=== PATIENT | male | born 1995 | race Hispanic/Latino ===

== ENCOUNTER 2022-02-07 06:48 | Emergency (ER) | payer SELFPAY ==
[2022-02-07 07:26] LABS: #Monocytes 0.3 10x3/uL (0.0-1.1); #Neutrophils 5.3 10x3/uL (1.5-8.4); %Basophils 0.6 % (0.0-2.0); %Eosinophils 0.3 % (0.0-6.0); %Lymphocytes 13.3 % (18.0-47.0); %Monocytes 4.6 % (0.0-10.0); %Neutrophils 79.1 % (40.0-75.0); Hemoglobin 12.4 g/dL (13.5-17.5); Mean Corpuscular HGB CONC 34.3 g/dL (32.0-36.0); Mean Corpuscular Hemoglobin 30.5 pg (27.0-33.0); Mean Corpuscular Volume 89.2 fl (81.2-95.1); Platelet Count 188 10x3/uL (150-450); RBC Distribution Width 12.4 % (11.5-14.5); Red Blood Cell (RBC) Count 4.06 10x6/uL (4.32-5.72); White Blood Cell (WBC) Count 6.7 10x3/uL (3.5-10.5)
[2022-02-07 07:43] LABS: ALT (SGPT) 28 U/L (8-55); AST (SGOT) 19 U/L (5-34); Albumin 3.4 g/dL (3.5-5.0); Alkaline Phosphatase 74 U/L (40-110); Anion Gap 12 mmol/L (10-20); BUN (Urea Nitrogen) 9 mg/dL (8.9-20.6); Bilirubin, Total 0.4 mg/dL (0.2-1.2); CK (CPK) 52 U/L (30-200); Calc. Creatinine Clearance 0 mL/min (70-130); Calcium 7.9 mg/dL (7.8-10.44); Carbon Dioxide 19 mmol/L (22-29); Chloride 112 mmol/L (98-107); Globulin 2.6 g/dL (2.4-3.5); Glucose 114 mg/dL (70-105); Lipase 29 U/L (8-78); Potassium 3.4 mmol/L (3.5-5.1); Sodium 140 mmol/L (136-145)
[2022-02-07] MEDS ORDERED: Ibuprofen 200 MG TAB ONE (08:11)
== END 2022-02-07 09:07 | disposition home or self-care (01) ==
LOC: CSHERS 06:48
DX: T43.641A Poisoning by ecstasy, accidental (unintentional), initial encounter (principal)
CPT/HCPCS: 36415; 80053; 82550; 83605; 83690; 84443; 84484; 85025; 87804; 93005

== ENCOUNTER 2022-02-09 14:33 | Emergency (ER) | payer SELFPAY ==
[~2022-02-09 14:33] MED LIST: Iopamidol 370 76% 100 ML VIAL ONE
[2022-02-09] MEDS ORDERED: Ondansetron PF 4 MG/2 ML Vial ONE (15:15)
[2022-02-09] MEDS ORDERED: Lorazepam 2 MG/ML VIAL ONE (15:15)
[2022-02-09 15:31] LABS: #Monocytes 0.1 10x3/uL (0.0-1.1); #Neutrophils 6.9 10x3/uL (1.5-8.4); %Basophils 0.5 % (0.0-2.0); %Lymphocytes 7.4 % (18.0-47.0); %Neutrophils 89.9 % (40.0-75.0); Hemoglobin 12.9 g/dL (13.5-17.5); Mean Corpuscular Hemoglobin 30.1 pg (27.0-33.0); Mean Platelet Volume 9.5 fl (7.4-10.4); Platelet Count 196 10x3/uL (150-450); RBC Distribution Width 12.7 % (11.5-14.5); Red Blood Cell (RBC) Count 4.29 10x6/uL (4.32-5.72); White Blood Cell (WBC) Count 7.7 10x3/uL (3.5-10.5)
[2022-02-09 15:35] LABS: Bilirubin Neg (Negative); Blood, Urine Negative (Negative); Clarity Clear (Clear); Glucose, Urine (Dipstick) Normal (Negative); Ketone, Urine 5 mg/dL (Negative); Leukocyte 25 (Negative); Nitrite Negative (Negative); Protein, Urine (Dipstick) 15 mg/dl (Neg-Trace)
[2022-02-09 15:42] LABS: Acetaminophen Less than 10.0 mcg/mL (10.0-30.0); Alcohol Less than 10 mg/dL (Less than 10); CK (CPK) 95 U/L (30-200); Magnesium 1.4 mg/dL (1.6-2.6); Salicylate Less than 8.0 mg/dL (15.0-30.0)
[2022-02-09 15:43] LABS: Amphetamine Not Detected (NotDetected); Barbiturates Screen Not Detected (NotDetected); Benzodiazepine Screen Detected (NotDetected); Cocaine Metabolite Screen Not Detected (NotDetected); Methadone Not Detected (NotDetected); Methamphetamine Not Detected (NotDetected); Opiate Screen Not Detected (NotDetected); Oxycodone Screen Not Detected (NotDetected); Phencyclidine (PCP) Not Detected (NotDetected); THC/Cannabinoid Screen Detected (NotDetected); Tricyclic Screen Not Detected (NotDetected)
[2022-02-09 16:13] LABS: Bacteria/HPF None Seen HPF (None Seen); RBC/HPF None Seen HPF (0-3); Squamous Epithelial None Seen HPF (0-3); WBC/HPF None Seen HPF (0-3)
[2022-02-09] MEDS ORDERED: Acetaminophen 325 MG TAB ONE (16:14)
[2022-02-09] MEDS ORDERED: Piperacillin/Tazobactam 3.375 GM VIAL ONE (16:14)
[2022-02-09] MEDS ORDERED: methylPREDNISolone Sod Succ 40 MG VIAL ONE (17:24)
[2022-02-09] MEDS ORDERED: diphenhydrAMINE 50 MG/ML VIAL ONE (17:24)
[2022-02-09] MEDS ORDERED: Famotidine/PF 20 mg/2ml Vial ONE (17:24)
[2022-02-09 17:33] LABS: SARS-CoV-2 NAA Rapid Test Not Detected (NotDetected)
== END 2022-02-09 19:59 | disposition home or self-care (01) ==
LOC: CSHERS 14:33
DX: T44.1X1A Poisoning by other parasympathomimetics [cholinergics], accidental (unintentional), initial encounter (principal); I47.1 Supraventricular tachycardia; Z20.822 Contact with and (suspected) exposure to COVID-19
CPT/HCPCS: 36415; 71045; 71275; 74177; 80306; 80307; 81003; 81015; 82550; 83605; 83735; 83880; 84443; 84484; 85025; 85379; 87040; 87077; 87149; 87186; 93005; 94760; 96374; 96375; J1200; J2060; J2405; J2543; J2920; Q9967; S0028

== ENCOUNTER 2023-11-02 08:05 | Emergency (ER) | payer OTHER | END 2023-11-02 08:45 | disposition home or self-care (01) | LOC: CSHERS 08:05 | DX: S97.112A Crushing injury of left great toe, initial encounter (principal); L60.0 Ingrowing nail; W23.0XXA Caught, crushed, jammed, or pinched between moving objects, initial encounter; Y92.69 Other specified industrial and construction area as the place of occurrence of the external cause | CPT/HCPCS: 99283 ==